=== PATIENT | male | born 1940 | race Caucasian/White ===

== ENCOUNTER 2019-12-26 18:47 | Emergency (ER) | payer MEDICARE ==
[2019-12-26] MEDS ORDERED: Amoxicillin/Potassium Clav 875 MG TAB ONE (19:47)
[2019-12-26] MEDS ORDERED: cefTRIAXone\\ROCEPHIN 1 GM VIAL ONE (19:47)
[2019-12-26] MEDS ORDERED: TETANUS, DIPHTHERIA TOX,ADULT (TDVAX) 0.5 ML VIAL IM ONE (19:47)
[2019-12-26] MEDS ORDERED: Lidocaine 1% PF 5 ML VIAL ONE (19:53)
== END 2019-12-26 20:30 | disposition home or self-care (01) ==
LOC: BURERS 18:47
DX: S60.512A Abrasion of left hand, initial encounter (principal); L03.114 Cellulitis of left upper limb; N40.0 Benign prostatic hyperplasia without lower urinary tract symptoms; E78.5 Hyperlipidemia, unspecified; E78.00 Pure hypercholesterolemia, unspecified; J44.9 Chronic obstructive pulmonary disease, unspecified; Z87.891 Personal history of nicotine dependence; Z23 Encounter for immunization; W64.XXXA Exposure to other animate mechanical forces, initial encounter
CPT/HCPCS: 90471; 96372; J0696

== ENCOUNTER 2023-10-05 11:52 | Emergency (ER) | payer MEDICARE ==
[2023-10-05 12:27] LABS: ALT (SGPT) 13 U/L (8-55); AST (SGOT) 22 U/L (5-34); Albumin 3.7 g/dL (3.4-4.8); Alkaline Phosphatase 56 U/L (40-110); Anion Gap 13 mmol/L (10-20); BUN (Urea Nitrogen) 39 mg/dL (8.4-25.7); Bilirubin, Total 0.2 mg/dL (0.2-1.2); Calc. Creatinine Clearance 0 mL/min (70-130); Calcium 9.3 mg/dL (7.8-10.44); Carbon Dioxide 26 mmol/L (23-31); Chloride 102 mmol/L (98-107); Estimated GFR 41; Globulin 2.8 g/dL (2.4-3.5); Glucose 114 mg/dL (83-110); Potassium 4.4 mmol/L (3.5-5.1); Protein, Total 6.5 g/dL (5.8-8.1); Sodium 137 mmol/L (136-145)
[2023-10-05 12:28] LABS: Troponin I 0.031 ng/mL (< 0.028)
[2023-10-05 12:30] LABS: Hematocrit 29.1 % (42.0-52.0); Hemoglobin 9.8 g/dL (14.0-18.0); Mean Corpuscular HGB CONC 33.5 g/dL (32.0-36.0); Mean Corpuscular Hemoglobin 28.7 pg (27.0-31.0); Platelet Count 261 10x3/uL (130-400); RBC Distribution Width 12.1 % (11.5-14.5); White Blood Cell (WBC) Count 6.3 10x3/uL (4.8-10.8)
[2023-10-05 12:31] LABS: Mean Platelet Volume 5.8 fL (7.4-10.4)
[2023-10-05 12:43] LABS: Critical Call w/ Read Back 806765
[2023-10-05 12:44] LABS: Eosinophils 3 % (0-10); Lymphocytes 41 % (21-51); MDiff Complete? YES; Monocytes 5 % (0-10); Neutrophil 49 % (42-75)
[2023-10-05] MEDS ORDERED: Aspirin Chewable 81 MG TAB ONE (13:13)
[2023-10-05 17:04] LABS: Troponin I 0.024 ng/mL (< 0.028)
[2023-10-15 03:53] LABS: Mean Corpuscular Volume 85.7 fl (78.0-98.0)
== END 2023-10-05 17:11 ==
LOC: BURERS 11:52
DX: I51.3 Intracardiac thrombosis, not elsewhere classified (principal); D64.9 Anemia, unspecified; J44.9 Chronic obstructive pulmonary disease, unspecified; N17.9 Acute kidney failure, unspecified; I10 Essential (primary) hypertension; E78.00 Pure hypercholesterolemia, unspecified; Z87.891 Personal history of nicotine dependence; Z79.899 Other long term (current) drug therapy
CPT/HCPCS: 71045; 80053; 83880; 84484; 85025; 93005; 96360

== ENCOUNTER 2023-12-25 10:35 | Emergency (ER) | payer MEDICARE | END 2023-12-25 12:19 | disposition short-term general hospital (02) | LOC: BURERS 10:35 | DX: S40.011A Contusion of right shoulder, initial encounter (principal); S50.11XA Contusion of right forearm, initial encounter; S40.021A Contusion of right upper arm, initial encounter; I10 Essential (primary) hypertension; F17.210 Nicotine dependence, cigarettes, uncomplicated; R79.1 Abnormal coagulation profile; J44.9 Chronic obstructive pulmonary disease, unspecified; W19.XXXA Unspecified fall, initial encounter; Y93.89 Activity, other specified; Y92.73 Farm field as the place of occurrence of the external cause | CPT/HCPCS: 36415; 85379; 99284 ==

== ENCOUNTER 2025-02-03 12:33 | Emergency (ER) | payer OTHER, MEDICARE ==
[2025-02-03] MEDS ORDERED: Cephalexin 250 MG CAP ONE (12:47)
== END 2025-02-03 13:20 | disposition home or self-care (01) ==
LOC: BURERS 12:33
DX: L03.114 Cellulitis of left upper limb (principal); I10 Essential (primary) hypertension; J44.9 Chronic obstructive pulmonary disease, unspecified; Z87.891 Personal history of nicotine dependence; W55.89XA Other contact with other mammals, initial encounter
CPT/HCPCS: 90471; 90715